=== PATIENT | male | born 1960 | race Caucasian/White ===

== ENCOUNTER 2022-09-19 22:17 | Emergency (ER) | payer OTHER ==
[2022-09-20] MEDS ORDERED: Bacitracin Oint 1 GM U/D Packet TOP ONE (00:19)
[2022-09-20] MEDS ORDERED: Lidocaine 1% with EPINEPHrine 1:100,000 50 ML MDV SUBCUT STA (00:19)
[2022-09-20] MEDS ORDERED: fentaNYL 100 MCG/2 ML SDV IM ONE (00:19)
[2022-09-20] MEDS ORDERED: Diphtheria,Pertussis(Acell),Tetanus Vaccine 0.5 ML Syringe IM ONE (00:22)
== END 2022-09-20 01:21 | disposition home or self-care (01) ==
LOC: JP.ED 22:17
DX: S61.551A Open bite of right wrist, initial encounter (principal); S61.451A Open bite of right hand, initial encounter; Z23 Encounter for immunization; W54.0XXA Bitten by dog, initial encounter
CPT/HCPCS: 12002; 90471; 90715; 96372; 99283; J3010; 99282